=== PATIENT | male | born 1970 | race Two or more races ===

== ENCOUNTER 2016-08-26 10:48 | Emergency (ER) | payer OTHER, BC ==
[2016-08-26 11:01] VITALS: BP 134/97
--- NOTE | 2016-08-26 13:19 | EDM.PDOC ---
ED HPI GENERAL MEDICAL PROBLEM - General Chief Complaint: Skin Complaint Stated Complaint: RASH Time Seen by Provider: 08/26/16 12:15 Source of Information: Reports: Patient History Limitations: Reports: No Limitations - History of Present Illness INITIAL COMMENTS - FREE TEXT/NARRATIVE: 46-year-old male presents for evaluation and treatment of hives. Patient reports that the hives have present since the end of June. He states that they' re very pruritic. He states that he has been at the walk-in clinic twice and was prescribed numerous medications. Reports that they will help for short time but then his hives return. Reports hives to the bilateral legs, arms, back and abdomen. Patient also developed facial swelling to the upper lip and in between the eyes over the last week. Currently they are on the bilateral arms, left leg and right lower back. Denies any fevers, bruising, nausea, vomiting, joint swelling or joint pain. He has been on a Medrol Dosepak, 5 day course of prednisone, triamcinolone cream, Benadryl, Claritin and has received an IM injection in the clinic. Of note he only started the Claritin today. He has been taking Benadryl for the last week. Recently moved from [place] to [place]. Reports the hives started about 2 weeks after that. He also started a new job. He can otherwise not think of any new lotions, detergents, soaps or any dietary changes. He denies any recent travel. Patient is healthy with no known medical conditions. He has never had anything like this before. Location: Reports: Face, Abdomen, Back, Upper Extremity, Left, Upper Extremity, Right, Lower Extremity, Left, Lower Extremity, Right Associated Symptoms: Denies: Cough, Fever/Chills, Nausea/Vomiting, Shortness of Breath - Related Data Allergies Allergy/AdvReac Type Severity Reaction Status Date / Time No Known Allergies Allergy Verified 08/26/16 11:03 Home Meds: Home Meds Loratadine/Pseudoephedrine [Claritin-D 24 Hour Tablet] 1 tab PO DAILY 08/26/16 [ History] Prednisone [IJD: predniSONE] 40 mg PO WITHBREAKFAST #11 tab 08/26/16 [Rx] diphenhydrAMINE [Benadryl] 25 mg PO BID 08/26/16 [History] Past Medical History - Past Surgical History GI Surgical History: Reports: Appendectomy Social & Family History - Family History Family Medical History: Noncontributory - Tobacco Use Smoking Status *Q: Never Smoker - Recreational Drug Use Recreational Drug Use: No ED ROS GENERAL - Review of Systems Review Of Systems: See Below Constitutional: Denies: Fever Respiratory: Denies: Shortness of Breath, Wheezing, Cough GI/Abdominal: Denies: Nausea, Vomiting Musculoskeletal: Denies: Joint Pain, Joint Swelling Skin: Reports: Pruritis, Rash, Erythema. Denies: Bruising ED EXAM, SKIN/RASH Exam: See Below Exam Limited By: No Limitations General Appearance: Alert, WD/WN, No Apparent Distress Eye Exam: Bilateral Eye: PERRL Throat/Mouth: Normal Voice, No Airway Compromise Neck: Normal Inspection Respiratory/Chest: No Respiratory Distress, Lungs Clear, Normal Breath Sounds Cardiovascular: Normal Peripheral Pulses, Regular Rate, Rhythm, No Murmur Neurological: Alert, Oriented, Normal Cognition Psychiatric: Normal Affect, Normal Mood Skin: Warm, Dry, Normal Color, Erythema (erythematous, blanching macular papular rash to the bilateral arms, abdomen, back and legs; hives on average are 0.5cm in diameter), Excoriations, Increased Warmth Associated features: Warmth, Wwelling, Inflammation Course - Vital Signs Last Recorded V/S: Last Vital Signs Temp 36.8 C 08/26/16 10:56 Pulse 96 08/26/16 10:56 Resp 16 08/26/16 10:56 BP 134/97 H 08/26/16 10:56 Pulse Ox 96 08/26/16 10:56 - Orders/Labs/Meds Labs: Laboratory Tests 08/26/16 08/26/16 08/26/16 Range/Units 12:45 12:45 12:45 WBC 5.72 (4.23-9.07) K/mm3 RBC 5.18 (4.63-6.08) M/mm3 Hgb 16.8 (13.7-17.5) gm/L Hct 48.8 (40.1-51.0) % MCV 94.2 H (79.0-92.2) fl MCH 32.4 H (25.7-32.2) pg MCHC 34.4 (32.2-35.5) g/dl RDW Std Deviation 44.3 H (35.1-43.9) fL Plt Count 339 H (163-337) K/mm3 MPV 9.8 (9.4-12.3) fl Neutrophils % (Manual) 21 L (40-60) % Band Neutrophils % 4 (0-10) % Lymphocytes % (Manual) 39 (20-40) % Atypical Lymphs % 3 % Monocytes % (Manual) 6 (2-10) % Eosinophils % (Manual) 26 H (0.8-7.0) % Basophils % (Manual) 1 (0.2-1.2) Platelet Estimate Adequate Plt Morphology Comment Normal RBC Morph Comment Normal ESR 12 (0-15) mm/hr Sodium 140 (136-145) mEq/L Potassium 3.9 (3.5-5.1) mEq/L Chloride 105 (98-107) mEq/L Carbon Dioxide 27 (21-32) mEq/L Anion Gap 11.9 (5-15) BUN 13 (7-18) mg/dL Creatinine 1.0 (0.7-1.3) mg/dL Est Cr Clr Drug Dosing 86.30 mL/min Estimated GFR (MDRD) > 60 (>60) mL/min BUN/Creatinine Ratio 13.0 L (14-18) Glucose 102 (74-106) mg/dL Calcium 8.8 (8.5-10.1) mg/dL Total Bilirubin 0.9 (0.2-1.0) mg/dL AST 40 H (15-37) U/L ALT 99 H (16-63) U/L Alkaline Phosphatase 85 (46-116) U/L C-Reactive Protein 0.3 (<1.0) mg/dL Total Protein 8.1 (6.4-8.2) g/dl Albumin 4.2 (3.4-5.0) g/dl Globulin 3.9 gm/dL Albumin/Globulin Ratio 1.1 (1-2) Meds: Medications Discontinued Medications Generic Name Dose Route Start Last Admin Trade Name Freq PRN Reason Stop Dose Admin Methylprednisolone Sodium Succinate 125 mg 08/26/16 14:04 08/26/16 14:08 Solu-Medrol IM 08/26/16 14:05 125 mg ONETIME ONE Administration - Re-Assessments/Exams Free Text/Narrative Re-Assessment/Exam: 08/26/16 12:40 Plan will be to start with some basic labs. We discussed a referral to dermatology. He states that dermatology in [place] is booked until October. Given that it is been this long and symptoms are the severe feel he should be seen earlier. I do believe that dermatology in [place] has much more open availability and last I heard he can normally be seen within the next few weeks. We will check some labs and I will discuss with him further including possibly a stronger and longer course of prednisone. 08/26/16 14:04 Labs returned. White blood cell count 5.72 with 26% eosinophils, hemoglobin 16.8 and platelets 339. Sodium 140, potassium 3.9 chloride 105. Anion gap 11.5. AST and ALT are mildly elevated at 40 and 99 respectively. Alkaline phosphatase is 85. ESR is within normal limits at 12. CRP is within normal limits of 0.3. I reviewed the lab results with patient. I will have him follow-up with a primary care provider for elevated liver enzymes. I gave him a shot of Solu- Medrol here in the ER. I prescribed him a course of prednisone. I will have him talk with [place] tomorrow to try and schedule with dermatology. If he is able to be seen within the next 2 weeks I will have him hold off on the oral prednisone. Discharge instructions as documented. Departure - Departure Time of Disposition: 14:04 Disposition: Home, Self-Care 01 Condition: Fair Clinical Impression: Hives - Discharge Information Prescriptions: Prednisone [IJD: predniSONE] 40 mg PO WITHBREAKFAST #11 tab Instructions: Hives Referrals: PCP,None [Primary Care Provider] - Forms: ED Department Discharge Additional Instructions: Continue taking the Claritin as prescribed. unless instructed otherwise by derm Take the prednisone as prescribed. start tomorrow. 2 tabs PO days 1-3, 1 tab PO days 4-6 and 1/2 tab PO days 7-11. unless instructed otherwise by derm. Follow up with dermatology as soon as you're able to. Call [phone] or for [facility] or [phone] [facility] in [place]. Please contact [facility] if you need a referral Also recommend an OTC mediation such as zantac daily. unless instructed otherwise by derm. Please return to the ER should your symptoms change or worsen
[2016-08-26] MEDS ORDERED: methylPREDNISolone Sodium Succinate 125 MG/2 ML SDV IM ONE (14:04)
== END 2016-08-26 14:15 | disposition home or self-care (01) ==
LOC: JD.ED 10:48
DX: L50.9 Urticaria, unspecified (principal); Z90.49 Acquired absence of other specified parts of digestive tract
CPT/HCPCS: 36415; 80053; 85025; 85652; 86140; 96372; 99283; J2930